=== PATIENT | male | born 1940 | race Caucasian/White ===

== ENCOUNTER 2023-12-05 15:30 | Emergency (ER) | payer MEDICARE, SELFPAY ==
--- NOTE | 2023-12-05 15:38 | ED.NECK ---
HPI - Neck Pain/Injury General Chief Complaint: Neck Pain/Injury Stated Complaint: NECK PAIN Time Seen by Provider: 12/05/23 15:48 Source: patient and RN notes reviewed Mode of arrival: ambulatory Limitations: no limitations History of Present Illness HPI Narrative: 83 year old male presents with concern for right sided neck pain. He reports last week he was bowling and he hurt his lower back and since then the pain has progressed up towards his neck, his lower back is now feeling better. He has been taking Tylenol intermittently that relieves the pain temporarily. He denies weakness, decreased strength, range of motion in his upper extremities. He denies direct injury or trauma. MD complaint: neck pain Related Data Home Medications Medication Instructions Recorded Confirmed alpha lipoic acid 600 mg capsule 600 mg PO DAILY 12/05/23 12/05/23 apixaban 5 mg tablet (Eliquis) 10 mg PO DAILY 12/05/23 12/05/23 calcium carbonate 600 mg-vitamin 2 tablet PO DAILY 12/05/23 12/05/23 D3 10 mcg (400 unit) tablet furosemide 20 mg tablet 40 mg PO DAILY 12/05/23 12/05/23 losartan 50 mg tablet 50 mg PO DAILY 12/05/23 12/05/23 metoprolol tartrate 50 mg tablet 50 mg PO BID 12/05/23 12/05/23 omeprazole 40 mg capsule,delayed 40 mg PO DAILY 12/05/23 12/05/23 release pregabalin 300 mg capsule 300 mg PO BID 12/05/23 12/05/23 zinc sulfate 50 mg zinc (220 mg) mg 12/05/23 capsule Allergies Allergy/AdvReac Type Severity Reaction Status Date / Time iohexol Allergy Unknown Verified 12/05/23 15:57 [From contrast - CT, X-RAY] Penicillins Allergy Unknown Verified 12/05/23 15:57 NFA Allergy Unknown Unknown Uncoded 12/05/23 15:57 Review of Systems Review of Systems: CONSTITUTIONAL: Denies malaise, chills, sweats, or fever. CARDIOVASCULAR: Denies chest pain, palpitations, or edema. RESPIRATORY: Denies cough or dyspnea. SKIN: Denies rash or itching. MUSCULOSKELETAL: Reports right neck pain NEUROLOGIC: Denies numbness, weakness, or headache. All systems reviewed & are unremarkable except as noted in HPI and below PMFSH Comments At time of signature, agree with nursing past medical, surgical, social and family history. There is no relevant family history pertinent to the presenting complaint Exam Narrative: GENERAL: Well-appearing, well-nourished, and in no acute distress. HEAD: Normocephalic, atraumatic. EYES: PERRLA and EOMI. NECK: Supple. No lymphadenopathy. CHEST: Clear to auscultation. No respiratory distress. HEART: Regular rate and rhythm. Distal pulses palpable and equal, cap refill <3 seconds MUSCULOSKELETAL: Normal range of motion and strength in all extremities. Normal sensation in dermatomal distributions with sensitivity to light touch and pain. No midline neck tenderness to palpation. No paraspinal tenderness. Transfers from to sitting to standing. SKIN: Warm, dry, no rash. No ecchymosis, erythema, open wounds to neck. NEURO: No focal deficits. Alert and oriented x3. Reflexes intact. Normal gait. PSYCH: Normal mood and affect Course Course Emergency Course: Patient is aware of diagnosis, understands and agrees to treatment plan. Anticipatory guidance given. Patient agrees to follow-up as directed and is aware of reasons to seek care at the emergency department. Portions of this record may have been created with voice recognition software Level of Care: Express Care Visit Vital Signs Vital signs: Reviewed. MDM - Neck Pain/Injury MDM Narrative Medical decision making narrative: I evaluated this patient in the express care. History is obtained from patient who is an independent historian and physical exam was performed.? Available medical records were reviewed. ? Exam findings and relevant testing show no acute concerns or changes; patient is non-toxic appearing and is in no distress. ? Differential diagnosis and treatment plan were discussed with the patient. Patient agrees with discussion and after
[2023-12-05 15:39] VITALS: BP 123/73; PULSE 60; RESP 16; TEMP 36.5; O2SAT 98
== END 2023-12-05 16:05 | disposition home or self-care (01) ==
PROVIDERS: Emergency Provider Nurse Practitioner
DX: S16.1XXA Strain of muscle, fascia and tendon at neck level, initial encounter (principal); X58.XXXA Exposure to other specified factors, initial encounter; Y93.54 Activity, bowling; I11.0 Hypertensive heart disease with heart failure; I50.9 Heart failure, unspecified; K21.9 Gastro-esophageal reflux disease without esophagitis; E78.00 Pure hypercholesterolemia, unspecified
CPT/HCPCS: 99213; G0463

== ENCOUNTER 2024-07-30 12:36 | Outpatient (CLI) | payer MEDICARE, SELFPAY ==
--- NOTE | ~2024-07-30 | US_ITS ---
EXAMINATION: US abdomen complete DATE: 07/30/2024 13:08 INDICATION: Abnormal levels of other serum enzymes. Elevated liver function tests. TECHNIQUE: Multiple grayscale and Doppler ultrasound images of the abdomen were obtained. COMPARISON: None FINDINGS: The abdominal aorta is poorly visualized but appears normal in caliber. The visualized proximal infer ior vena cava is normal. The pancreatic head and body are normal in appearance. The pancreatic tail is not visualized. Liver has normal contour, with a smooth surface. There is increased parenchymal ec hogenicity and coarsened echotexture consistent with diffuse hepatic steatosis. No liver lesion ident ified. No intrahepatic biliary duct dilation suspected. Portal venous flow was seen in the hepatopet al, normal direction and has normal Doppler waveform. There is echogenic material along the dependent wall of the otherwise normal appearing gallbladder. There are some subtle posterior acoustic shadowi ng suggesting at least within the echogenic material represent small gallstones. The gallbladder is n ormal in appearance. The common bile duct measures 3 mm, which is normal. Sonographic Caldwell sign wa s reported as negative by the lubrication worker. There is normal renal contour and echogenicity bilaterally . The right kidney measures 11.7 x 5.7 x 6.7 cm and the left 11.5 x 7.1 x 5.1 cm. 5.1 cm anechoic exo phytic cyst at the upper pole of the right kidney. There is no hydronephrosis. Spleen is normal measu ring 10.2 cm in maximal length. IMPRESSION: 1. Diffuse hepatic steatosis. 2. Gallbladder sludge, likely with tiny gallstones in the dependent aspect of the otherwise normal ga llbladder. No intra or extrahepatic biliary ductal dilation. Reviewed, dictated and finalized at location A. STOCK TRANSFER CLERK IMPRESSION: 1. Diffuse hepatic steatosis. 2. Gallbladder sludge, likely with tiny gallstones in the dependent aspect of t he otherwise normal gallbladder. No intra or extrahepatic biliary ductal dilati on.
== END 2024-07-30 12:37 | disposition home or self-care (01) ==
LOC: MICIMG 12:37
PROVIDERS: PCP Family Medicine; Visit Provider Family Medicine
DX: K80.00 Calculus of gallbladder with acute cholecystitis without obstruction (principal); K76.0 Fatty (change of) liver, not elsewhere classified; R74.8 Abnormal levels of other serum enzymes
CPT/HCPCS: 76700

== ENCOUNTER 2025-03-20 00:43 | Day surgery (SDC) | payer MEDICARE, SELFPAY ==
--- NOTE | 2025-03-12 14:52 | PC.NURSE ---
Pt eduin at time pre-op phone call was made. I informed pt that his last dose of Eliquis would be on 03/17/25 prior to his procedure. Pt stated understanding. I also informed pt we would call him back tomorrow and go through his pre-op instructions and blood thinner instructions more thoroughly at that time. Pt in agreed.
[2025-03-13 13:51] VITALS: BMI 33.0
[2025-03-20 09:34] VITALS: BP 115/63; PULSE 58; RESP 19; TEMP 36.6; O2SAT 96; BMI 33.2
[2025-03-20] MEDS: LACTATED RINGERS 1,000 ML 150 ML IV CONT (09:42)
--- NOTE | 2025-03-20 09:55 | WPDANESEPPF ---
Anes - Initial Pre Proc Eval Procedure: Operation Date: 03/20/25 11:00 Proposed Procedures p Screening Colonoscopy - Jake Lemus MD Date/Time: 03/20/25 09:55 Surgeon: Jake Lemus MD Pre Op Diagnosis: screening/polyp of colon Patient Data Age: 84 Gender: M Height: 1.78 m Weight: 105 kg Last Vital Signs Temp 36.6 C 03/20/25 09:34 Pulse 58 L 03/20/25 09:34 Resp 19 03/20/25 09:34 BP 115/63 03/20/25 09:34 Pulse Ox 96 03/20/25 09:34 O2 Del Method Room Air 03/20/25 09:34 Allergies Allergy/AdvReac Type Severity Reaction Status Date / Time iohexol (From contrast - CT, Allergy Unknown Verified 03/20/25 09:31 X-RAY) Penicillins Allergy Unknown Verified 03/20/25 09:31 NFA Allergy Unknown Unknown Uncoded 12/25/24 11:25 Home Medications ?Medication ?Instructions ?Recorded ?Confirmed ?Type calcium 600 mg (as 2 tablet PO DAILY 12/05/23 03/20/25 History carbonate)-vitamin D3 10 mcg (400 unit) tablet furosemide 20 mg tablet 40 mg PO DAILY 12/05/23 03/20/25 History metoprolol tartrate 50 mg tablet 50 mg PO BID 12/05/23 03/20/25 History omeprazole 40 mg capsule,delayed 40 mg PO DAILY 12/05/23 03/20/25 History release losartan 50 mg tablet 50 mg PO DAILY #90 tabs 08/07/24 03/20/25 Rx zinc sulfate 50 mg zinc (220 mg) 50 mg PO DAILY #100 caps 01/08/25 03/20/25 Rx capsule apixaban 5 mg tablet (Eliquis) 5 mg PO Q12H 03/13/25 03/20/25 History pregabalin 300 mg capsule 200 mg PO BID 03/13/25 03/20/25 History alpha lipoic acid 600 mg capsule 600 mg PO DAILY #90 caps 03/19/25 03/20/25 Rx Patient hx anesthesia problems: none Family hx anesthesia problems: none Results Review: All pre-operative results and documents have been reviewed as part of the pre-operative evaluation. [facility] Past Medical History Medical History (Updated 03/20/25 @ 10:22 by Jake Lemus MD) Family history of colon cancer CHF (congestive heart failure) Paroxysmal atrial fibrillation Peripheral neuropathy H/O: CVA (cerebrovascular accident) Chronic renal insufficiency, stage III (moderate) Social History Social History Smoking status: Never smoker Substance use type: does not use Living arrangements: alone Spiritual care concerns: No Anes - Eval Final PreProcedure Day of Procedure 03/20/25 09:55 Patient weight: obese Heart: regular rate and rhythm Lungs: clear to auscultation Airway: Mallampati scale class II Neurological: alert and oriented Last oral intake: >/= 8 hours ASA classification: III Emergent: no Anesthetic plan: proceed Anesthesia type and monitoring: general GIVS and standard monitoring Results Review: All pre-operative results and documents have been reviewed as part of the pre-operative evaluation. Informed Consent: The patient's anesthetic plan and its attendant risks and benefits were discussed with the patient/family/POA. Questions were solicited and answers provided to the satisfaction of the patient/family/POA.
--- NOTE | 2025-03-20 10:21 | PM.HPGS ---
History of Present Illness History of Present Illness Consent: Risks, benefits, and alternatives have been discussed and questions answered. Patient agrees to proceed with procedure. Chief complaint: screening/polyp of colon Narrative: Nazario Hill Jr. is a 84 year old male with colon polyp few years ago but also recently his son diagnosed with colon cancer Review of Systems Review of Systems: All systems reviewed & are unremarkable except as noted in HPI and below PMFSH Past Medical History Medical History (Updated 03/20/25 @ 10:22 by Jake Lemus MD) Family history of colon cancer CHF (congestive heart failure) Paroxysmal atrial fibrillation Peripheral neuropathy H/O: CVA (cerebrovascular accident) Chronic renal insufficiency, stage III (moderate) Social History Social History Smoking status: Never smoker Substance use type: does not use Living arrangements: alone Spiritual care concerns: No Meds Home Medications and Allergies Home Medications ?Medication ?Instructions ?Recorded ?Confirmed ?Type calcium 600 mg (as 2 tablet PO DAILY 12/05/23 03/20/25 History carbonate)-vitamin D3 10 mcg (400 unit) tablet furosemide 20 mg tablet 40 mg PO DAILY 12/05/23 03/20/25 History metoprolol tartrate 50 mg tablet 50 mg PO BID 12/05/23 03/20/25 History omeprazole 40 mg capsule,delayed 40 mg PO DAILY 12/05/23 03/20/25 History release losartan 50 mg tablet 50 mg PO DAILY #90 tabs 08/07/24 03/20/25 Rx zinc sulfate 50 mg zinc (220 mg) 50 mg PO DAILY #100 caps 01/08/25 03/20/25 Rx capsule apixaban 5 mg tablet (Eliquis) 5 mg PO Q12H 03/13/25 03/20/25 History pregabalin 300 mg capsule 200 mg PO BID 03/13/25 03/20/25 History alpha lipoic acid 600 mg capsule 600 mg PO DAILY #90 caps 03/19/25 03/20/25 Rx Allergies Allergy/AdvReac Type Severity Reaction Status Date / Time iohexol (From contrast - CT, Allergy Unknown Verified 03/20/25 09:31 X-RAY) Penicillins Allergy Unknown Verified 03/20/25 09:31 NFA Allergy Unknown Unknown Uncoded 12/25/24 11:25 Vital Signs Vital Signs - 24 hr 03/20/25 09:34 Temperature 97.8 F Pulse Rate 58 L Respiratory Rate 19 Blood Pressure 115/63 Pulse Oximetry 96 Oxygen Delivery Room Air Exam Const: General: comfortable and no acute distress HENMT: Face/Nose/Sinus: Normal nares present Eyes: General: appearance normal, both eyes and all related structures Neck: Neck: no JVD Resp: Auscultation: clear to auscultation bilaterally Cardio: Rate: regular rate Rhythm: regular rhythm GI: Inspection: non-distended GI Palp: Yes Soft to palpation Skin: General skin exam: normal color Neuro: Speech: normal speech Extrem: General: normal to inspection Psych: Mental Status: mental status grossly normal Assessment and Plan Assessment and plan (1) Family history of colon cancer: Code(s): Z80.0 - Family history of malignant neoplasm of digestive organs Status: Acute Assessment and Plan: colonoscopy (2) Colon polyps: Code(s): K63.5 - Polyp of colon Status: Acute
--- NOTE | 2025-03-20 10:31 | S_PTH ---
PATIENT: Nazario Hill Jr. LOC: [facility] Conn#:[id number] AGE/SX: 84/M ROOM: RE03/20/[address]: Jake Lemus MD : 1940 BED: DIS: 03/20/2025 SPEC #: [id number] RECD: 03/20/25 10:55 STATUS: BRYN REIrma #: [id number] KIMBER: 03/20/25 10:[address]: Jake Lemus DEPT: [facility] Surgical RECD BY: Chikis Houston ENTERED: 03/20/25 10:55 SP TYPE: Surgical OTHR DR: Noemí ToussaintMD Tissues: A - Colon Polypectomy Procedures: Hematoxylin and Eosin Stain Gross and Microscopic Level 4
[2025-03-20 10:32] VITALS: BP 95/50; PULSE 58; RESP 17; O2SAT 92
[2025-03-20 10:42] VITALS: BP 87/54; PULSE 54; RESP 17; O2SAT 96
[2025-03-20 10:52] VITALS: BP 84/54; PULSE 53; RESP 20; O2SAT 97
[2025-03-20 11:01] VITALS: BP 110/52
== END 2025-03-20 11:15 | disposition home or self-care (01) ==
PROVIDERS: PCP Family Medicine; Referring Provider Family Medicine; Visit Provider Internal Medicine Gastroenterology
PROC: 0DJD8ZZ Inspection of Lower Intestinal Tract, Via Natural or Artificial Opening Endoscopic (ICD-10-PCS; CPT 45378; principal; 2025-03-20 11:00)
DX: Z12.11 Encounter for screening for malignant neoplasm of colon (principal); D12.2 Benign neoplasm of ascending colon; K64.8 Other hemorrhoids; K57.30 Diverticulosis of large intestine without perforation or abscess without bleeding; N18.30 Chronic kidney disease, stage 3 unspecified; I48.0 Paroxysmal atrial fibrillation; I50.9 Heart failure, unspecified; G62.9 Polyneuropathy, unspecified; E66.9 Obesity, unspecified; Z68.33 Body mass index [BMI] 33.0-33.9, adult; Z79.01 Long term (current) use of anticoagulants; Z86.79 Personal history of other diseases of the circulatory system; Z80.0 Family history of malignant neoplasm of digestive organs
CPT/HCPCS: 45385; 88305; J2704; J7120